=== PATIENT | male | born 1955 | race Caucasian/White ===

== ENCOUNTER → 2024-12-20 | Outpatient (CLI) | payer MEDICARE, MEDICAID, SELFPAY ==
--- NOTE | 2024-12-20 | XR_ITS ---
Examination: Ultrasound soft tissue neck TECHNIQUE: Grayscale sonographic images soft tissue neck Exam date and time: December 20, 2024 1122 hours INDICATIONS: Palpable left and right neck Mass. Noticed beginning 3 years ago difficulty swallowing FINDINGS: No cystic or solid mass depicted IMPRESSION: No cystic or solid soft tissue mass noted Consider CT soft tissue neck post intravenous contrast follow-up as clinically warranted
== END | disposition home or self-care (01) ==
PROVIDERS: PCP Family Medicine; Referring Provider Student in an Organized Health Care Education/Training Program; Visit Provider Student in an Organized Health Care Education/Training Program
DX: R22.1 Localized swelling, mass and lump, neck (principal)
CPT/HCPCS: 76536